=== PATIENT | male | born 1980 | race Caucasian/White ===

== ENCOUNTER → 2016-11-08 | Outpatient (CLI) | payer OTHER | LOC: BRMIMAGING 08:46 | PROVIDERS: ATTEND Physician Assistant Medical | DX: S52.531A Colles' fracture of right radius, initial encounter for closed fracture (principal) | CPT/HCPCS: 73110-PO ==

== ENCOUNTER → 2016-11-30 | Outpatient (CLI) | payer OTHER | LOC: BRMIMAGING 09:56 | PROVIDERS: ATTEND Physician Assistant Medical | DX: S52.531A Colles' fracture of right radius, initial encounter for closed fracture (principal) | CPT/HCPCS: 73110-PO ==

== ENCOUNTER → 2016-12-14 | Outpatient (CLI) | payer OTHER | LOC: BRMIMAGING 09:00 | PROVIDERS: ATTEND Physician Assistant Medical | DX: S52.531D Colles' fracture of right radius, subsequent encounter for closed fracture with routine healing (principal) | CPT/HCPCS: 73110-PO ==